=== PATIENT | male | born 1990 | race Asian ===

== ENCOUNTER 2020-05-23 22:11 | Emergency (ER) | payer OTHER ==
[~2020-05-23] VITALS: Ht 180.3 cm; Wt 86.2 kg
[2020-05-24 00:55] VITALS: BP 110/75; TEMP 98.9
== END 2020-05-24 00:55 | disposition home or self-care (01) ==
LOC: ED 22:11
DX: N34.2 Other urethritis (principal); N39.0 Urinary tract infection, site not specified
CPT/HCPCS: 81000; 87088; 87490; 87590; 96372; 99283